=== PATIENT | female | born 1965 | race Caucasian/White ===

== ENCOUNTER 2025-05-21 07:48 | Outpatient (REF) | payer BC, SELFPAY ==
--- NOTE | ~2025-05-21 | MM_ITS ---
EXAMINATION: MM SCREENING DIGITAL BREAST TOMOSYNTHESIS, BILATERAL CLINICAL INFORMATION: Screening. Asymptomatic. COMPARISON: Mammography: Comparison is made with available priors TECHNIQUE: Digital breast mammography with tomosynthesis is performed in both the craniocaudal and mediolateral oblique views along with computer-aided detection (CAD). FINDINGS: The breasts are heterogeneously dense, which may obscure small masses. There are no significant masses, abnormal calcifications, or other abnormalities. MM/MM tomosynthesis screening BI IMPRESSION: No mammographic evidence of malignancy. ASSESSMENT: BI-RADS Category 1: Negative RECOMMENDATION: Routine annual mammography screening. Patient has a family history of breast cancer including sister diagnosed at 46. Breast MRI imaging for yearly screening surveillance could be considered for further evaluation. Breast mild need to be ordered by the patient's providing clinician. 1 year F/U This examination should not preclude the clinical evaluation of a suspicious palpable abnormality. This patient's information was entered into a reminder system with a target due date for their next mammogram. Electronically signed by: Anisa Freeman DO 05/24/2025 03:42 PM EDT
--- OUTSIDE RECORDS SUMMARY | 2025-05-21 07:50 | XMS_ITS | Encounter Summary ---
Author Organization [facility] Address [address] [place] [address] Phone Care Team Providers Care Compound Worker Name Role Phone Gary Camargo CNP Unavailable Gary Camargo CNP Primary Care Provider [phone] Guru Richardson MD Unavailable [phone] Perla Estrada OD Unavailable Guru Darden MD Unavailable Manav Mccray MD Unavailable [phone] Peyman Sandoval MD Unavailable [phone] Manav Mccray MD Unavailable [phone] Malik Alvarez MD Unavailable [phone] Encounter Details Date Type Department Care Team (Late st Contact Info) Description 03/22/2023 Procedure Pass [facility] - [address] [place] [address] Social History Tobacco Use Types Packs/Day Years Used Date Smoking Tobacco: Never Smokeless Tobacco: Never Alcohol Use Standard Drinks/Week Comments Yes 3 (1 standard drink = 0.6 oz pur e alcohol) (2022) Education Answer Date Recorded Are you interested in more education? Not on andrew e 12/20/2022 Are you concerned about learning? Not on file 12/20/2022 No 12/20/2022 No 12/20/2022 Digital Access Answer Date Recorded No 01/21/2023 No 01/21/2023 Reliable internet access at home? Not on file 01/21/2023 Device with a working camera? Not on file Comments No Sex and Gender Information Value Date Recorded Sex Assigned at Female 02/06/2018 1:55 PM EDT Legal Sex Female 7:06 PM EST Gender Identity Not on file Sexual Orientation Not on file documented as of this encounter Plan of Treatment Upcoming Encounters Date Type Department Care Team (Late st Contact Info) Description 04/23/2025 Procedure Pass [address] [place] [address] 07/08/2025 3:40 PM EST Office Visit [facility] [address] [place] [address] Justyn Biswas DO 22 [place] [address] 09/20/2025 4:00 PM EST Office Visit [facility] Medicine [address] [place] [address] [place] [address] Gary Camargo, ARABIC LINGUIST [address] [place] [address], [address] [place] [address] [email or web address] 09/22/2025 2:20 PM EST Office Visit [facility] [address] [place] [address] 3rd Floor, [address] [place] [address] Peyman Sandoval MD [address] [place] [address], [address] [place] [address] 12/14/2025 7:30 AM EDT Appointment [address] [place] [address] Gary Camargo, ARABIC LINGUIST [address] [place] [address], [address] [place] [address] [email or web address] documented as of this encounter Visit Diagnoses Not on filedocumented in this encounter Additional Health Concerns Infection Onset Date Last Indicated Resolved Time CoV-Risk 03/22/2023 03/22/2023 04/02/2023 1:21 AM EDT Assessment Noted Time PHQ-2 Depression Total Score: 0 11/28/19 5:03 PM EDT documented as of this encounter Care Teams Compound Worker Relationship Specialty Start Date End Date Gary Camargo CNP [address] [place] [address], [address] [address] PCP - General 07/25/17 Gary Camargo CNP [address] [place] [address] Historical LMR Provider 06/16/1709/17 Guru Richardson MD [address] [place] [address] Dermatology 04/29/19 Perla Estrada OD [address] [place] [address] Optometry 04/29/19 09/12/23 Guru Darden MD [address] [place] [address] Ophthalmology 11/28/22 Manav Mccray MD [address] [place] [address] Family Medicine 11/28/22 09/17/24 Peyman Sandoval MD [address] [place] [address] [email or web address] Cardiology 11/28/22 Manav Mccray MD [address] [place] [address], [address] [place] [address] Insurance Assigned Provider 11/30/23 03/06/25 Malik Alvarez MD [address] [place] [address], [address] [place] [address] [email or web address] Insurance Assigned Provider 03/06/25 [facility] 09/18/24 documented as of this encounter Additional Source Comments The information contained in this document represents components of the legal health record. It is not the complete legal health record.[facility]
--- OUTSIDE RECORDS SUMMARY | 2025-05-21 07:51 | XMS_ITS | Encounter Summary ---
Author Organization [facility] Address [address] [place] [address] Phone Care Team Providers Care Nut Sheller Name Role Phone Gary Camargo CNP Unavailable Gary Camargo CNP Primary Care Provider Guru Richardson MD Unavailable Guru Darden MD Unavailable Manav Mccray MD Unavailable [phone] Peyman Sandoval MD Unavailable Manav Mccray MD Unavailable [phone] Malik Alvarez MD Unavailable [phone] Encounter Details Date Type Department Care Team (Latest Contact Info) Description 03/17/2024 Transcribe Orders Virtual Department [address] [place], [place] [id number] Gary Camargo CNP 22 [facility], [address] [place] [address] [email or web address] Breast screening (Primary Dx) Social History Tobacco Use Types Packs/Day Years Used Date Smoking Tobacco: Never Smokeless Tobacco: Never Alcohol Use Standard Drinks/Week Comments Yes 3 (1 standard drink = 0.6 oz pur e alcohol) (2023) Child or Family Care Answer Date Record ed Do you have problems with on e of the following making it difficult for you to work, study, or receive health care? No 09/13/2023 Education Answer Date Recorded Are you interested in help w ith more adult education (for example, completing high school, GED, job training, learning the [place] language, technical skills, or developing parenting skills)? No 09/13/2023 Are you concerned about learning? Not on file 09/13/2023 No 09/13/2023 Yes 09/13/2023 Food Answer Date Recorded Within the past 6 months we worried whether our food would run out before we got money to buy more. Never True 09/13/2023 Within the past 6 months the food we bought just didn't last and we didn't have enough money to get more. Never True Residential Stability Answer Date Recor ded What is your housing situation today? I have cong sing 09/13/2023 How many times have you move d in the past 12 months? Zero (I did not move) 09/13/2023 Paying for Meds Answer Date Recorded Do you have trouble paying for medicines? No 09/13/2023 Paying Utility Bills Answer Date Record ed Do you have trouble paying your heating or elect ricity bill? No 09/13/2023 Transportation Answer Date Recorded Has the lack of transportati on kept you from medical appointments or from getting medications? No 09/13/2023 Digital Access Answer Date Recorded No 09/13/2023 Yes 09/13/2023 Do you have reliable internet access at home? Ye s 09/13/2023 Do you have a device (e.g., phone, tablet, computer) with a working camera? Yes 09/13/2023 Intimate Partner Violence Answer Date R ecorded Denied Basic Needs Not on file 09/13/2023 In the past 12 months have y ou been in a relationship with a person who hurts, threatens, or tries to control you? No 09/13/2023 Worried food would run out Not on file 09/13 In the past 12 months have y ou been in a relationship with a person who hurts, threatens, or tries to control you? No 09/13/2023 Comments No Sex and Gender Information Value Date Recorded Sex Assigned at Female 02/06/2018 1:55 PM EDT Legal Sex Female 7:06 PM EST Gender Identity Not on file Sexual Orientation Not on file documented as of this encounter Plan of Treatment Upcoming Encounters Date Type Department Care Team (Late st Contact Info) Description 04/23/2025 Procedure Pass [address] [place] [address] 07/08/2025 3:40 PM EST Office Visit [facility] [address] [place] [address] Justyn Biswas DO [address] [place] [address] 09/20/2025 4:00 PM EST Office Visit [facility] Medicine [address] [place] [address] [place] [address] Gary Camargo, RETAIL ACCOUNT EXECUTIVE [address] [place] [address], [address] [place] [address] [email or web address] 09/22/2025 2:20 PM EST Office Visit [facility] [address], [address] [place] [address] Peyman Sandoval MD [address] [place] [address], [address] [place] [address] 12/14/2025 7:30 AM EDT Appointment [address] [place] [address] Gary Camargo, RETAIL ACCOUNT EXECUTIVE [address] [place] [address], [address] [place] [address] [email or web address] documented as of this encounter Results * BI MAMMOGRAM SCREENING WITH TOMOSYNTHESIS WITH CAD (BILATERAL) (07/06/2024 3:13 PM EST) Anatomical Region Laterality Modality Breast Left, Breast Right, Breast Bilateral Bila teral Mammography 07/07/2024 11:0 3 AM EST Impressions 07/07/2024 11:03 AM EST No mammographic evidence of malignancy in either breast. Annual screening mammography is recommended. BI-RADS 1 NEGATIVE The patient will be notified of the results and recommendations. Narrative 07/07/2024 11:03 AM EST BI MAMMOGRAM SCREENING WITH TOMOSYNTHESIS WITH CAD (BILATERAL) Additional patient information: Screening. COMPARISON: Comparison is made with relevant prior imaging. Breast composition: The breast tissue is heterogeneously dense which may obscure small masses. FINDINGS: No abnormal masses, suspicious calcifications, or other significant findings are identified mammographically in either breast. Procedure Note Janneth Carbajal MD - 07/07/2024 BI MAMMOGRAM SCREENING WITH TOMOSYNTHESIS WITH CAD (BILATERAL) Additional patient information: Screening. COMPARISON: Comparison is made with relevant prior imaging. Breast composition: The breast tissue is heterogeneously dense which mayobscure small masses. FINDINGS: No abnormal masses, suspicious calcifications, or other significantfindings are identified mammographically in either breast. IMPRESSION: No mammographic evidence of malignancy in either breast. Annual screening mammography is recommended. BI-RADS 1 NEGATIVE The patient will be notified of the results and recommendations. Gary Camargo CNP IMG MG EXAMS Final Res ult documented in this encounter Visit Diagnoses Diagnosis Breast screening- Primary Breast screening, unspecified Breast screening Breast screening, unspecified documented in this encounter Additional Health Concerns Assessment Noted Time PHQ-2 Depression Total Score: 0 09/13/19 24 2:21 PM EST documented as of this encounter Care Teams Nut Sheller Relationship Specialty Start Date End Date Gary Camargo CNP 22 [facility], [address] [place] [address] PCP - General 07/25/17 Gary Camargo CNP 22 [facility], [address] [place] [address] Historical LMR Provider 06/16/1709/17 Guru Richardson MD [address] [place] [address], [address] [place] [address] Dermatology 04/29/19 Guru Darden MD [address] [place] [address] [place] [address] Ophthalmology 11/28/22 Manav Mccray MD [address] [place] [address], [address] [place] [address] Family Medicine 11/28/22 09/17/24 Peyman Sandoval MD [address] [place] [address], [address] [place] [address] Cardiology 11/28/22 Manav Mccray MD [address] [place] [address], [address] [place] [address] Insurance Assigned Provider 11/30/2308/19 Malik Alvarez MD [address] [place] [address], [address] [place] [address] Insurance Assigned Provider 03/06/25 Pedro Luis 09/18/24 documented as of this encounter Additional Source Comments The information contained in this document represents components of the legal health record. It is not the complete legal health record.[facility]
--- OUTSIDE RECORDS SUMMARY | 2025-05-21 07:51 | XMS_ITS | Encounter Summary ---
Author Organization [facility] Address [address] [place] [address] [place] [address] Phone Care Team Providers Care Rn Community Name Role Phone Gary Camargo CNP Primary Care Provider [phone] Guru Richardson MD Unavailable [phone] Guru Darden MD Unavailable [phone] Peyman Sandoval MD Unavailable Malik Alvarez MD Unavailable [phone] Reason for Visit * Reason Comments Medication Refill Encounter Details Date Type Department Care Team (Late st Contact Info) Description 03/17/2025 Refill [facility] [place] [facility] [address] [place] [address] Malik Alvarez MD 22 [facility], [address] [place] [address] [email or web address] Medication Refill Social History Tobacco Use Types Packs/Day Years Used Date Smoking Tobacco: Never Smokeless Tobacco: Never Alcohol Use Standard Drinks/Week Comments Yes 3 (1 standard drink = 0.6 oz pur e alcohol) (2024) Child or Family Care Answer Date Record ed Do you have problems with on e of the following making it difficult for you to work, study, or receive health care? No 09/11/2024 Education Answer Date Recorded Are you interested in help w ith more adult education (for example, completing high school, GED, job training, learning the [place] language, technical skills, or developing parenting skills)? No 09/11/2024 Are you concerned about learning? Not on file 09/11/2024 No 09/11/2024 Yes 09/11/2024 Food Answer Date Recorded Within the past 6 months we worried whether our food would run out before we got money to buy more. Never True 09/11/2024 Within the past 6 months the food we bought just didn't last and we didn't have enough money to get more. Never True Residential Stability Answer Date Recor ded What is your housing situation today? I have cong sing 09/11/2024 How many times have you move d in the past 12 months? Zero (I did not move) 09/11/2024 Paying for Meds Answer Date Recorded Do you have trouble paying for medicines? I aida se not to answer 09/11/2024 Paying Utility Bills Answer Date Record ed Do you have trouble paying y our heating or electricity bill? I choose not to answer 09/11/2024 Transportation Answer Date Recorded Has the lack of transportati on kept you from medical appointments or from getting medications? No 09/11/2024 Digital Access Answer Date Recorded No 09/11/2024 Yes 09/11/2024 Do you have reliable internet access at home? Ye s 09/11/2024 Do you have a device (e.g., phone, tablet, computer) with a working camera? Yes 09/11/2024 Intimate Partner Violence Answer Date R ecorded Denied Basic Needs Not on file 09/11/2024 In the past 12 months have y ou been in a relationship with a person who hurts, threatens, or tries to control you? No 09/11/2024 Worried food would run out Not on file 09/11 In the past 12 months have y ou been in a relationship with a person who hurts, threatens, or tries to control you? No 09/11/2024 Comments No Sex and Gender Information Value Date Recorded Sex Assigned at Female 02/06/2018 1:55 PM EDT Legal Sex Female 7:06 PM EST Gender Identity Not on file Sexual Orientation Not on file documented as of this encounter Progress Notes * Marcela Olivares MA - 03/17/2025 10:05 AM EDT Rx Care Gap Status - Instructions for Clinical Staff (prescriber discretion applies): > Mismatch review guide > N/a - No action needed Visit Info Last visit: 12/04/2024 Malik Alvarez MD - Family Medicine [facility] > Requested f/u: Not specified Upcoming visit: 09/20/2025 Gary Camargo CNP - Family Medicine [facility] ACTIONS TAKEN BY Marcela Olivares MA - Criteria met. Allergy / Rhinitis / Urticaria Rx Protocol - cetirizine HCl Criteria met; renew for up to 12 months. Visit in the past 24 months: Yes documented in this encounter Plan of Treatment Upcoming Encounters Date Type Department Care Team (Late st Contact Info) Description 04/23/2025 Procedure Pass [facility] - [address] [place] [address] 07/08/2025 3:40 PM EST Office Visit [facility] [address] [place] [address] [place] [address] Justyn Biswas DO [address] [place] [address] 09/20/2025 4:00 PM EST Office Visit [address] [place] [address] Gary Camargo CNP [address] [place] [address], [address] [place] [address] [email or web address] 09/22/2025 2:20 PM EST Office Visit [facility] [address] [place] [address] 3rd Floor, [address] [place] [address] Peyman Sandoval MD [address] [place] [address], [address] [place] [address] 12/14/2025 7:30 AM EDT Appointment [address] [place] [address] Gary Camargo CNP [address] [place] [address], [address] [place] [address] [email or web address] documented as of this encounter Visit Diagnoses Diagnosis Seasonal allergies Allergic rhinitis, cause unspecified documented in this encounter Additional Health Concerns Assessment Noted Time PHQ-2 Depression Total Score: 0 09/11/19 25 7:49 PM EST documented as of this encounter Care Teams Rn Community Relationship Specialty Start Date End Date Gary Camargo CNP [address] [place] [address], [address] [address] PCP - General 07/25/17 Guur Richardson MD [address] [place] [address], [address] [place] [address] Dermatology 04/29/19 Guru Darden MD [address] [place] [address] Ophthalmology 11/28/22 Peyman Sandoval MD [address] [place] [address], [address] [address] Cardiology 11/28/22 Malik Alvarez MD [address] [place] [address], [address] [address] Insurance Assigned Provider 03/06/25 [facility] 09/18/24 documented as of this encounter Additional Source Comments The information contained in this document represents components of the legal health record. It is not the complete legal health record.[facility]
--- OUTSIDE RECORDS SUMMARY | 2025-05-21 07:51 | XMS_ITS | Encounter Summary ---
Author Organization [facility] Address [address] [place] [address] Phone Care Team Providers Care Gold Marker Name Role Phone Manav Mccray MD Unavailable [phone] Diana Rasmussen MD Unavailable [phone] Luz Marina Martinez WATERWORKS PUMP STATION OPERATOR Unavailable Sadia Santiago MD Unavailable [phone] Ashlee Galvez WATERWORKS PUMP STATION OPERATOR Unavailable Brina Bajwa WATERWORKS PUMP STATION OPERATOR Unavailable Mango Renteria MD Unavailable [phone] Greyson Neumann MD Unavailable Denisse Ramires WATERWORKS PUMP STATION OPERATOR Unavailable [phone] Clay Golden MOBILE ENGINEER Unavailable [phone] Malik Castaneda MD Unavailable SantGary mitchell MOBILE ENGINEER Unavailable Emilio Camargoice MOBILE ENGINEER Primary Care Provider [phone] Manav Mccray MD Unavailable [phone] Guru Richardson MD Unavailable [phone] Perla Estrada OD Unavailable [phone] Guru Darden MD Unavailable Manav Mccray MD Unavailable [phone] Peyman Sandoval MD Unavailable Manav Mccray MD Unavailable [phone] Malik Alvarez MD Unavailable [phone] Encounter Details Date Type Department Care Team (Late st Contact Info) Description 12/16/2018 Ancillary Orders [address] [place] [address] Gary Camargo CNP [address] [place] [address], [address] [place] [address] Social History Tobacco Use Types Packs/Day Years Used Date Smoking Tobacco: Never Smokeless Tobacco: Never Alcohol Use Standard Drinks/Week Comments Yes 5 (1 standard drink = 0.6 oz pur e alcohol) Comments No Sex and Gender Information Value Date Recorded Sex Assigned at Female 02/06/2018 1:55 PM EDT Legal Sex Female 7:06 PM EST Gender Identity Not on file Sexual Orientation Not on file documented as of this encounter Plan of Treatment Upcoming Encounters Date Type Department Care Team (Late st Contact Info) Description 04/23/2025 Procedure Pass [facility] - [address] [place] [address] 07/08/2025 3:40 PM EST Office Visit [facility] [address] [place] [address] [place] [address] Justyn Biswas DO [address] [place] [address] 09/20/2025 4:00 PM EST Office Visit [address] [place] [address] Gary Camargo, SOL [address] [place] [address], [address] [place] [address] [email or web address] 09/22/2025 2:20 PM EST Office Visit [facility] [address] [place] [address] Dr 3rd Floor, [address] [place] [address] Peyman Sandoval MD 22 [facility], [address] [place] [address] 12/14/2025 7:30 AM EDT Appointment [address] [place] [address] Gary Camargo CNP 22 [facility], [address] [place] [address] [email or web address] documented as of this encounter Visit Diagnoses Not on filedocumented in this encounter Additional Health Concerns Infection Onset Date Last Indicated Resolved Time CoV-Risk 03/22/2023 03/22/2023 04/02/2023 1:21 AM EDT Assessment Noted Time PHQ-2 Depression Total Score: 0 04/14/20 2:04 PM EDT documented as of this encounter Care Teams Gold Marker Relationship Specialty Start Date End Date Gary Camargo CNP 22 [facility], [address] [place] [address] PCP - General 07/25/17 Manav Mccray MD [address] [place] [address], [address] [place] [address] Historical LMR Provider 06/16/17 9 Diana Rasmussen MD 15 [facility], 2nd [place] [address] Historical LMR Provider 06/16/17 Luz Marina Martinez NP [address] [place] [address] Historical LMR Provider 06/16/17 9 Sadia Santiago MD [address] [address] Historical LMR Provider 06/16/17 12/30/18 Ashlee Galvez, KIRILL [address] [place] [address] [place] [address] Historical LMR Provider 06/16/17 9 Brina Bajwa, KIRILL [address] [place] [address] Historical LMR Provider 06/16/17 9 Mango Renteria MD [address] [address] Historical LMR Provider 06/16/17 12/30/18 Greyson Neumann MD [address] [place] [address] 7 [place] [phone] Historical LMR Provider 06/16/17 9 Denisse Ramires, WATERWORKS PUMP STATION OPERATOR [address] [place] [address] 6 [place] [address] Historical LMR Provider 06/16/17 12/30/18 Clay Golden, MOBILE ENGINEER [address] [address] Historical LMR Provider 06/16/17 12/30/18 Malik Castaneda MD [address] [place] [address] [address] [place] [phone] [email or web address] Historical LMR Provider 06/16/17 04/28/19 Gary Camargo CNP [address] [place] [address], [address] [place] [address] [email or web address] Historical LMR Provider 06/16/1709/17 Manav Mccray MD [address] [place] [address], [address] [place] [address] Insurance Assigned Provider 01/25/19 10/29/21 Guru Richardson MD [address] [place] [address], [address] [place] [address] Dermatology 04/29/19 Perla Estrada OD [address] [place] [address] Optometry 04/29/19 09/12/23 Guru Darden MD [address] [place] [address] Ophthalmology 11/28/22 Manav Mccray MD [address] [place] [address], [address] [place] [address] [email or web address] Family Medicine 11/28/22 09/17/24 Peyman Sandoval MD [address] [place] [address], [address] [place] [address] [email or web address] Cardiology 11/28/22 Manav Mccray MD [address] [place] [address], [address] [place] [address] Insurance Assigned Provider 11/30/23 03/06/25 Malik Alvarez MD [address] [place] [address], [address] [place] [address] [email or web address] Insurance Assigned Provider 03/06/[address] [facility] 09/18/24 documented as of this encounter Additional Source Comments The information contained in this document represents components of the legal health record. It is not the complete legal health record.[facility]
--- OUTSIDE RECORDS SUMMARY | 2025-05-21 07:51 | XMS_ITS | Encounter Summary ---
Author Organization [facility] Address [address] [place] [address] Phone Care Team Providers Care Pastoral Ministries Professor Name Role Phone Gary Camargo CNP Unavailable Gary Camargo CNP Primary Care Provider Guru Richardson MD Unavailable Perla Estrada OD Unavailable [phone] Guru Darden MD Unavailable Manav Mccray MD Unavailable [phone] Peyman Sandoval MD Unavailable Manav Mccray MD Unavailable [phone] Malik Alvarez MD Unavailable [phone] Encounter Details Date Type Department Care Team (Latest Contact Info) Description 02/06/2022 Transcribe Orders Virtual Department [address] [place], [place] [id number] Gary Camargo CNP 22 [facility], [address] [place] [address] [email or web address] Breast screening (Primary Dx) Social History [...] st Contact Info) Description 04/23/2025 Procedure Pass [address] [place] [address] 07/08/2025 3:40 PM EST Office Visit [facility] [address] [place] [address] Justyn Biswas DO 22 [place] [address] 09/20/2025 4:00 PM EST Office Visit [facility] Medicine [address] [place] [address] Gary Camargo, TOURIST CAMP ATTENDANT [address] [place] [address], [address] [place] [address] [email or web address] 09/22/2025 2:20 PM EST Office Visit [facility] [address], [address] [place] [address] Peyman Sandoval MD [address] [place] [address], [address] [place] [address] 12/14/2025 7:30 AM EDT Appointment [address] [place] [address] Gary Camargo, TOURIST CAMP ATTENDANT [address] [place] [address], [address] [place] [address] [email or web address] documented as of this encounter Results * BI MAMMOGRAM SCREENING WITH TOMOSYNTHESIS WITH CAD (BILATERAL) (03/07/2022 3:50 PM EDT) Anatomical Region Laterality Modality Breast Left, Breast Right, Breast Bilateral Bila teral Mammography 03/07/2022 4:09 PM EDT Impressions 03/07/2022 4:59 PM EDT No mammographic evidence of malignancy. Recommend routine annual surveillance. BI-RADS CATEGORY: 2 - Benign finding. DENSITY: The breast tissue is heterogeneously dense, which could obscure a lesion on mammography. Narrative 03/07/2022 4:59 PM EDT 56-year-old female. Comparison made to previous on 03/02/2021 and as far back as 10/12/2008. Interpretation made in conjunction with computer-aided detection and tomosynthesis. The breasts are heterogeneously dense, which may obscure small masses. Stable outer right breast nodularity and bilateral microcalcifications. There are no suspicious masses, areas of architectural distortion, or suspicious clusters of microcalcifications. Procedure Note Paul Heath MD - 03/07/2022 56-year-old female. Comparison made to previous on 03/02/2021 and as farback as 10/12/2008. Interpretation made in conjunction with computer-aideddetection and tomosynthesis. The breasts are heterogeneously dense, which may obscure small masses.Stable outer right breast nodularity and bilateral microcalcifications. There are no suspicious masses, areas of architectural distortion, orsuspicious clusters of microcalcifications. IMPRESSION: No mammographic evidence of malignancy. Recommend routine annualsurveillance. BI-RADS CATEGORY: 2 - Benign finding. DENSITY: The breast tissue is heterogeneously dense, which could obscurea lesion on mammography. Gary Camargo TOURIST CAMP ATTENDANT IMG MG EXAMS Final Res ult documented in this encounter Visit Diagnoses Diagnosis Breast screening- Primary Breast screening, unspecified Breast screening Breast screening, unspecified documented in this encounter Additional Health Concerns Infection Onset Date Last Indicated Resolved Time CoV-Risk 03/22/2023 03/22/2023 04/02/2023 1:21 AM EDT Assessment Noted Time PHQ-2 Depression Total Score: 0 04/14/20 18 2:04 PM EDT documented as of this encounter Care Teams Pastoral Ministries Professor Relationship Specialty Start Date End Date Gary Camargo CNP [address] [place] [address], [address] [place] [address] PCP - General 07/25/17 Gary Camargo CNP [address] [place] [address], [address] [address] Historical LMR Provider 06/16/1709/17 Guru Richardson MD [address] [place] [address], [address] [address] Dermatology 04/29/19 Perla Estrada OD [address] [place] [address] Optometry 04/29/19 09/12/23 Guru Darden MD [address] [place] [address] Ophthalmology 11/28/22 Manav Mccray MD [address] [place] [address], [address] [address] Family Medicine 11/28/22 09/17/24 Peyman Sandoval MD [address] [place] [address] Cardiology 11/28/22 Manav Mccray MD [address] [place] [address], [address] [address] Insurance Assigned Provider 11/30/23 03/06/25 Malik Alvarez MD [address] [place] [address], [address] [place] [address] Insurance Assigned Provider 03/06/25 [facility] 09/18[facility]24 documented as of this encounter Additional Source Comments The information contained in this document represents components of the legal health record. It is not the complete legal health record.[facility]
--- OUTSIDE RECORDS SUMMARY | 2025-05-21 07:51 | XMS_ITS | Encounter Summary ---
Author Organization [facility] Address [address] [place] [address] Phone Care Team Providers Care Qa Intern Name Role Phone Gary Camargo CNP Unavailable [phone] Gary Camargo CNP Primary Care Provider [phone] Guru Richardson MD Unavailable Perla Estrada OD Unavailable [phone] Guru Darden MD Unavailable Manav Mccray MD Unavailable [phone] Peyman Sandoval MD Unavailable Manav Mccray MD Unavailable [phone] Malik Alvarez MD Unavailable [phone] Encounter Details Date Type Department Care Team (Late st Contact Info) Description 02/06/2022 Procedure Pass [address] [place] [address] Social History Tobacco Use Types Packs/Day Years [...] st Contact Info) Description 04/23/2025 Procedure Pass [address] [place] [address] 07/08/2025 3:40 PM EST Office Visit [facility] [address] [place] [address] Justyn Biswas DO 22 [place] [address] 09/20/2025 4:00 PM EST Office Visit [facility] Medical [facility] Family Medicine [address] [place] [address] Gary Camargo CNP [address] [place] [address], [address] [place] [address] [email or web address] 09/22/2025 2:20 PM EST Office Visit [facility] [address], [address] [place] [address] Peyman Sandoval MD [address] [place] [address], [address] [place] [address] 12/14/2025 7:30 AM EDT Appointment [address] [place] [address] Gary Camargo CNP [address] [place] [address], [address] [place] [address] [email or web address] documented as of this encounter Visit Diagnoses Not on filedocumented in this encounter Additional Health Concerns Infection Onset Date Last Indicated Resolved Time CoV-Risk 03/22/2023 03/22/2023 04/02/2023 1:21 AM EDT Assessment Noted Time PHQ-2 Depression Total Score: 0 04/14/20 2:04 PM EDT documented as of this encounter Care Teams Qa Intern Relationship Specialty Start Date End Date Gary Camargo CNP [address] [place] [address] [address] [place] [address] [email or web address] PCP - General 07/25/17 Gary Camargo CNP [address] [place] [address], [address] [place] [address] [email or web address] Historical LMR Provider 06/16/1709/17 Guru Richardson MD [address] [place] [address], [address] [place] [address] Dermatology 04/29/19 Perla Estrada OD [address] [place] [address] Optometry 04/29/19 09/12/23 Guru Darden MD [address] [place] [address] Ophthalmology 11/28/22 Manav Mccray MD [address] [place] [address], [address] [place] [address] Family Medicine 11/28/22 09/17/24 Peyman Sandoval MD [address] [place] [address], [address] [place] [address] [email or web address] Cardiology 11/28/22 Manav Mccray MD [address] [place] [address], [address] [place] [address] [email or web address] Insurance Assigned Provider 11/30/23 03/06/25 Malik Alvarez MD [address] [place] [address], [address] [place] [address] [email or web address] Insurance Assigned Provider 03/06/25 Pedro Luis 09/18/24 documented as of this encounter Additional Source Comments The information contained in this document represents components of the legal health record. It is not the complete legal health record.[facility]
--- OUTSIDE RECORDS SUMMARY | 2025-05-21 07:51 | XMS_ITS | Encounter Summary ---
Author Organization [facility] Address [address] [place] [address] Phone Care Team Providers Care Enterprise Systems Engineer Name Role Phone Gary Camargo CNP Unavailable [phone] Gary Camargo CNP Primary Care Provider [phone] Manav Mccray MD Unavailable [phone] Guru Richardson MD Unavailable [phone] Perla Estrada OD Unavailable [phone] Guru Darden MD Unavailable Manav Mccray MD Unavailable [phone] Peyman Sandoval MD Unavailable Manav Mccray MD Unavailable [phone] Malik Alvarez MD Unavailable [phone] Encounter Details Date Type Department Care Team (Late st Contact Info) Description 02/08/2021 Ancillary Orders [facility] Medicine [address] [place] [address] [place] [address] Gary Camargo CNP 22 [facility], [address] [place] [address] Social History Tobacco Use Types Packs/Day Years [...] st Contact Info) Description 04/23/2025 Procedure Pass [address] [place] [address] 07/08/2025 3:40 PM EST Office Visit [facility] [address] [place] [address] Justyn Biswas DO 22 [place] [address] 09/20/2025 4:00 PM EST Office Visit [address] [place] [address] Gary Camargo, CO FOUNDER AND CEO [address] [place] [address], [address] [place] [address] [email or web address] 09/22/2025 2:20 PM EST Office Visit [facility] [address] [place] [address] Dr 3rd Floor, [address] [place] [address] Peyman Sandoval MD [address] [place] [address], [address] [address] 12/14/2025 7:30 AM EDT Appointment [address] [place] [address] Gary Camargo CNP [address] [place] [address], [address] [place] [address] [email or web address] documented as of this encounter Visit Diagnoses Not on filedocumented in this encounter Additional Health Concerns Infection Onset Date Last Indicated Resolved Time CoV-Risk 03/22/2023 03/22/2023 04/02/2023 1:21 AM EDT Assessment Noted Time PHQ-2 Depression Total Score: 0 04/14/20 2:04 PM EDT documented as of this encounter Care Teams Enterprise Systems Engineer Relationship Specialty Start Date End Date LakhwinderGary foleySOL 22 [facility], [address] [place] [address] [email or web address] PCP - General 07/25/17 Gary Camargo CNP 22 [facility], [address] [place] [address] Historical LMR Provider 06/16/1709/17 Manav Mccray MD [address] [place] [address], [address] [address] Insurance Assigned Provider 01/25/19 10/29/21 Guru Richardson MD [address] [place] [address], [address] [address] Dermatology 04/29/19 Perla Estrada OD [address] [place] [address] Optometry 04/29/19 09/12/23 Guru Dardne MD [address] [place] [address] Ophthalmology 11/28/22 Manav Mccray MD [address] [place] [address], [address] [address] [email or web address] Family Medicine 11/28/22 09/17/24 Peyman Sandoval MD [address] [place] [address], [address] [place] [address] [email or web address] Cardiology 11/28/22 Manav Mccray MD [address] [place] [address], [address] [place] [address] [email or web address] Insurance Assigned Provider 11/30/23 03/06/25 Malik Alvarez MD [address] [place] [address], [address] [place] [address] [email or web address] Insurance Assigned Provider 03/06/25 [facility] 09/18/24 documented as of this encounter Additional Source Comments The information contained in this document represents components of the legal health record. It is not the complete legal health record.[facility]
--- OUTSIDE RECORDS SUMMARY | 2025-05-21 07:51 | XMS_ITS | Encounter Summary ---
Author Organization [facility] Address [address] [place] [address] Phone Care Team Providers Care Industrial Millwright Name Role Phone Gary Camargo CNP Unavailable [phone] Gary Camargo CNP Primary Care Provider [phone] Manav Mccray MD Unavailable [phone] Guru Richardson MD Unavailable Perla Estrada OD Unavailable [phone] Guru Darden MD Unavailable Manav Mccray MD Unavailable [phone] Peyman Sandoval MD Unavailable Manav Mccray MD Unavailable [phone] Malik Alvarez MD Unavailable [phone] Encounter Details Date Type Department Care Team (Late st Contact Info) Description 02/08/2021 Procedure Pass [address] [place] [address] Social History Tobacco Use Types Packs/Day Years [...] st Contact Info) Description 04/23/2025 Procedure Pass [address] [place] [address] 07/08/2025 3:40 PM EST Office Visit [facility] [address] [place] [address] [place] [address] Justyn Biswas DO [address] [place] [address] [email or web address] 09/20/2025 4:00 PM EST Office Visit [facility] Medical [facility] Family Medicine [address] [place] [address] [place] [address] Gary Camargo, SOL [address] [place] [address], [address] [place] [address] [email or web address] 09/22/2025 2:20 PM EST Office Visit [facility] [address] [place] [address] Dr 3rd Floor, [address] [place] [address] Peyman Sandoval MD [address] [place] [address], [address] [place] [address] [email or web address] 12/14/2025 7:30 AM EDT Appointment [address] [place] [address] Gary Camargo, WATER FILTERER HELPER [address] [place] [address], [address] [place] [address] [email or web address] documented as of this encounter Visit Diagnoses Not on filedocumented in this encounter Additional Health Concerns Infection Onset Date Last Indicated Resolved Time CoV-Risk 03/22/2023 03/22/2023 04/02/2023 1:21 AM EDT Assessment Noted Time PHQ-2 Depression Total Score: 0 04/14/20 2:04 PM EDT documented as of this encounter Care Teams Industrial Millwright Relationship Specialty Start Date End Date Gary CamargoSOL [address] [place] [address], [address] [place] [address] [email or web address] PCP - General 07/25/17 Gary Camargo WATER FILTERER HELPER [address] [place] [address], [address] [place] [address] [email or web address] Historical LMR Provider 06/16/1709/17 Manav Mccray MD [address] [place] [address], [address] [place] [address] [email or web address] Insurance Assigned Provider 01/25/19 10/29/21 Guru Richardson MD [address] [place] [address], [address] [place] [address] Dermatology 04/29/19 Perla Estrada OD [address] [place] [address] Optometry 04/29/19 09/12/23 Guru Darden MD [address] [place] [address] Ophthalmology 11/28/22 Manav Mccray MD [address] [place] [address], [address] [place] [address] [email or web address] Family Medicine 11/28/22 09/17/24 Peyman Sandoval MD [address] [place] [address], [address] [address] [email or web address] Cardiology 11/28/22 Manav Mccray MD [address] [place] [address], [address] [place] [address] [email or web address] Insurance Assigned Provider 11/30/23 03/06/25 Malik Alvarez MD [address] [place] [address], [address] [place] [address] [email or web address] Insurance Assigned Provider 03/06/25 [facility] 09/18/24 documented as of this encounter Additional Source Comments The information contained in this document represents components of the legal health record. It is not the complete legal health record.[facility]
--- OUTSIDE RECORDS SUMMARY | 2025-05-21 07:51 | XMS_ITS | Encounter Summary ---
Author Organization [facility] Address [address] [place] [phone] Phone Care Team Providers Care Public Relations Writer Name Role Phone Manav Mccray MD Unavailable +[phone] Diana Rasmussen MD Unavailable [phone] Luz Marina Martinez [employer] Unavailable Sadia Santiago MD Unavailable [phone] Ashlee Galvez [employer] Unavailable Brina Bajwa [employer] Unavailable Mango Renteria MD Unavailable [phone] Greyson Neumann MD Unavailable Denisse Ramires [employer] Unavailable [phone] Clay Golden LEARNING DEVELOPER Unavailable [phone] Malik Castaneda MD Unavailable SantGary mitchell LEARNING DEVELOPER Unavailable Emilio Camargoice LEARNING DEVELOPER Primary Care Provider [phone] Manav Mccray MD Unavailable +[phone] Guru Richardson MD Unavailable [phone] Perla Estrada OD Unavailable [phone] Guru Darden MD Unavailable Manav Mccray MD Unavailable [phone] Peyman Sandoval MD Unavailable Manav Mccray MD Unavailable [phone] Malik Alvarez MD Unavailable [phone] Encounter Details Date Type Department Care Team (Late st Contact Info) Description 01/28/2018 Ancillary Orders [address] [place] [address] Gary Camargo, LEARNING DEVELOPER [address] [facility], [address] [place] [address] [email or web address] Breast [email or web address] Social History Tobacco Use Types Packs/Day Years Used Date Smoking Tobacco: Never Smokeless Tobacco: Never Comments Unknown Sex and Gender Information Value Date Recorded Sex Assigned at Female 02/06/2018 1:55 PM EDT Legal Sex Female 7:06 PM EST Gender Identity Not on file Sexual Orientation Not on file documented as of this encounter Plan of Treatment Upcoming Encounters Date Type Department Care Team (Late st Contact Info) Description 04/23/2025 Procedure Pass [facility] - [address] [place] [address] 07/08/2025 3:40 PM EST Office Visit [facility] [address] [place] [address] [place] [address] Justyn Biswas DO [address] [place] [address] 09/20/2025 4:00 PM EST Office Visit [address] [place] [address] Gary Camargo, SOL [address] [place] [address], [address] [place] [address] [email or web address] 09/22/2025 2:20 PM EST Office Visit [facility] [address] [place] [address] [address] Floor, [address] [place] [address] Peyman Sandoval MD [address] [facility], [address] [place] [address] 12/14/2025 7:30 AM EDT Appointment [address] [place], [place] [address] Gary Camargo, SOL [address] [facility], [address] [place] [address] [email or web address] documented as of this encounter Results * BI MAMMOGRAM SCREENING WITH TOMOSYNTHESIS WITH CAD (BILATERAL) (02/06/2018 2:31 PM EDT) Anatomical Region Laterality Modality Breast Left, Breast Right, Breast Bilateral Bila teral Mammography 02/06/2018 3:12 PM EDT Impressions 02/06/2018 3:31 PM EDT No mammographic evidence of malignancy. Recommend routine annual surveillance. BI-RADS CATEGORY: 2 - Benign finding. DENSITY: The breast tissue is heterogeneously dense, an appearance which lowers the sensitivity of mammography. POS - CDHMAMA Narrative 02/06/2018 3:31 PM EDT 52-year-old female with no current breast symptoms. Comparison made to previous on 02/01/2017 and as far back as 12/31/2011. Interpretation made in conjunction with computer-aided detection and tomosynthesis. The breasts are heterogeneously dense, which may obscure small masses. Stable scattered bilateral microcalcifications and left upper outer quadrant lymph node. There are no suspicious masses, areas of architectural distortion, or suspicious clusters of microcalcifications. Procedure Note Osman Sebastian MD - 02/06/2018 52-year-old female with no current breast symptoms. Comparison made toprevious on 02/01/2017 and as far back as 12/31/2011. Interpretation madein conjunction with computer-aided detection and tomosynthesis. The breasts are heterogeneously dense, which may obscure small masses.Stable scattered bilateral microcalcifications and left upper outerquadrant lymph node. There are no suspicious masses, areas of architectural distortion, orsuspicious clusters of microcalcifications. IMPRESSION: No mammographic evidence of malignancy. Recommend routine annualsurveillance. BI-RADS CATEGORY: 2 - Benign finding. DENSITY: The breast tissue is heterogeneously dense, an appearance whichlowers the sensitivity of mammography. POS - CDHMAMA Gary Camargo LEARNING DEVELOPER IMG MG EXAMS Final Res ult documented in this encounter Visit Diagnoses Diagnosis Breast screening Breast screening, unspecified Breast screening Breast screening, unspecified documented in this encounter Additional Health Concerns Infection Onset Date Last Indicated Resolved Time CoV-Risk 03/22/2023 03/22/2023 04/02/2023 1:21 AM EDT documented as of this encounter Care Teams Public Relations Writer Relationship Specialty Start Date End Date Gary Camargo CNP [address] [place] [address], [address] [place] [address] PCP - General 07/25/17 Manav Mccray MD [address] [place], [place] [id number] [place] [address] Historical LMR Provider 06/16/17 9 Diana Rasmussen MD [address] [facility], [address]nd [place] [address] Historical LMR Provider 06/16/17 Luz Marina Martinez NP [address] [place] [address] Historical LMR Provider 06/16/17 9 Sadia Santiago MD [address] [facility], [address] [place] [address] Historical LMR Provider 06/16/17 12/30/18 Ashlee Galvez, KIRILL [address] [place] [address] [address] [place] [address] Historical LMR Provider 06/16/17 9 Brina Bajwa NP [address] [place] [address] Historical LMR Provider 06/16/17 9 Mango Renteria MD [address] [address] Historical LMR Provider 06/16/17 12/30/18 Greyson Neumann MD [address] [place] [phone] Historical LMR Provider 06/16/17 9 Denisse Ramires, [employer] [address] [place] [address] 6 [place] [address] Historical LMR Provider 06/16/17 12/30/18 Clay Golden, LEARNING DEVELOPER [address] [facility], [address] [place] [address] Historical LMR Provider 06/16/17 12/30/18 Malik Castaneda MD [address] [place] [address] [address] [place] [phone] [email or web address] Historical LMR Provider 06/16/17 04/28/19 Emilio CamargoebonySOL [address] [place] [address], [address] [place] [address] Historical LMR Provider 06/16/1709/17 Manav Mccray MD [address] [place] [address], [address] [place] [address] Insurance Assigned Provider 01/25/19 10/29/21 Guru Richardson MD [address] [place] [address], [address] [place] [address] Dermatology 04/29/19 Perla Estrada OD [address] [place] [address] Optometry 04/29/19 09/12/23 Guru Darden MD [address] [place] [address] Ophthalmology 11/28/22 Manav Mccray MD [address] [place] [address], [address] [address] Family Medicine 11/28/22 09/17/24 Peyman Sandoval MD [address] [place] [address], [address] [address] [email or web address] Cardiology 11/28/22 Manav Mccray MD [address] [place] [address], [address] [place] [address] Insurance Assigned Provider 11/30/23 03/06/25 Malik Alvarez MD [address] [place] [address], [address] [place] [address] [email or web address] Insurance Assigned Provider 03/06/25 [facility] documented as of this encounter Additional Source Comments The information contained in this document represents components of the legal health record. It is not the complete legal health record.[facility]
--- OUTSIDE RECORDS SUMMARY | 2025-05-21 07:51 | XMS_ITS | Clinical Summary ---
Author Organization [facility] Address [address] [place] [phone] Phone Care Team Providers Care Machine Operator Name Role Phone Gary Camargo CNP Primary Care Provider [phone] Guru Richardson MD Unavailable [phone] Guru Darden MD Unavailable [phone] Peyman Sandoval MD Unavailable [phone] Malik Alvarez MD Unavailable Allergies No known active allergies Medications cholecalciferol (VITAMIN D3) 2,000 unit capsule Take 1 tablet by mouth daily. Active levothyroxine (SYNTHROID, LEVOTHROID) 112 MCG tabletIndications: Acquired hypothyroidism Take 1 tablet (112 mcg total) by mouth every morning. Use 1 tablet Saturday through Saturdays and 1-1/2 tablets on Sundays. 90 tablet 3 4 Active liothyronine (CYTOMEL) 5 MCG tabletIndications: Acquired hypothyroidism Take 1 tablet (5 mcg total) by mouth daily. 90 tablet 3 4 Active hydroCHLOROthiazid e 12.5 MG tabletIndications: Benign essential hypertension TAKE 1 TABLET BY MOUTH EVERY DAY 90 tablet 3 5 Active aspirin 81 MG EC tablet Take 1 tablet (81 mg total) by mouth daily. 90 tablet 3 5 Active telmisartan (MICARDIS) 80 MG tabletIndications: Benign essential hypertension TAKE 1 TABLET BY MOUTH EVERY DAY 90 tablet 3 5 Active fluticasone propionate (FLONASE) 50 mcg/actuation nasal sprayIndications:S easonal allergies 1 spray by Nasal route daily. 16 g 3 5 Active rosuvastatin (CRESTOR) 5 MG tablet Take 1 tablet (5 mg total) by mouth daily. 90 tablet 3 5 Active Active Problems Problem Noted Date Diagnosed Date Ascending aorta dilatation 09/18/2024 Assessment & Plan (09/18/2024 4:38 PM EST): Borderline enlargement of the mid ascending aorta at 3.8 cm. Non-aneurysmal. She will discuss with Dr. Sandoval at her next visit. Hyperlipidemia 09/18/2024 Assessment & Plan (09/18/2024 4:38 PM EST): She picked up the atorvastatin but has not started it. She is interested in updating a lipid panel first and has an open order. We discussed that this does not change the recommendation for statin medication given the CAC score (even though it is low). We discussed potential statin s/e and the use of Co-Q10. She will consider. Ensure regular exercise. Chronic fatigue 07/09/2024 Assessment & Plan (07/09/2024 4:14 PM EST): I reviewed that the patient has normal hemoglobin hematocrit she had comprehensive levels with elevated bilirubin, elevated transaminase. Chloride level slightly below the reference range slightly elevated albumin. So I will repeat a comprehensive level. At this point I will do fatigue workup magnesium levels have already been done so when I requested. I will check ESR, IGF-I, vitamin D, thiamine, ESR and cortisol levels this has to be done fasting in the morning. I will be seeing her for thyroid disorder in 1 year but if we do find any abnormalities in any of the lab work that I ordered I asked her to return for follow-up sooner. She is going to review the patient portal and let me know. Encounter for general adult medical examination with abnormal findings 09/13/2023 Assessment & Plan (09/18/2024 4:38 PM EST): We discussed that she is eligible for Covid, PCV20, and Shingrix vaccines. She will consider. Warning signs of breast cancer and breast self-awareness reviewed. Continue annual mammography. Next screening pap smear 2027 per ASCCP guidelines. Colonoscopy 2026 per GI. Continue regular dental and eye care. Assessment & Plan (09/13/2023 3:28 PM EST): Flu shot today. Eligible for Shingrix and Covid vaccines at the pharmacy. Warning signs of breast cancer and breast self-awareness reviewed. Next screening pap smear 2027. Next screening colonoscopy 2027 per GI. Labs as below. Continue regular dental and eye care. Retinal freckle 11/28/2022 Assessment & Plan (09/18/2024 4:38 PM EST): She will follow up with her retinal specialist this summer. Assessment & Plan (09/13/2023 3:30 PM EST): She will schedule a follow up with the retinal group. Abnormal electrocardiogram 07/30/2019 Acquired hypothyroidism 08/16/2017 Assessment & Plan (07/09/2024 4:12 PM EST): She is chemically euthyroid but clinically continues to complain of fatigue. She is either taking too much medication or the fatigue is not thyroid related. I am decreasing the dose of levothyroxine by half a tablet per week so she will be taking 112 mcg daily. She will repeat thyroid function studies prior to follow-up visit in 1 year. Assessment & Plan (04/08/2024 4:09 PM EDT): Chemically euthyroid but clinically does not feel well. Feels that she is dragging herself. Does not feel energetic. I will increase the dose of levothyroxine by half a tablet but I did inform her that if her TSH is suppressed I cannot continue prescribing such a high dose because it is associated with arrhythmia and bone resorption. She will repeat thyroid function studies in 3 months. Assessment & Plan (02/18/2024 2:28 PM EDT): No clear cause for drop in TSH. She will have repeat labs in March. I recommended that she check with the pharmacy to see if she has been getting the same generic medication before her follow up visit with endocrinology. Assessment & Plan (01/07/2024 8:53 AM EDT): Chemically in a hyperthyroid state but clinically euthyroid. I informed her that suppressed TSH is associated with increased bone resorption therefore increasing osteopenia/osteoporosis and possibility of arrhythmia so we have to decrease the dose of levothyroxine from 125 to 112 mcg continue liothyronine 5 mcg. She should repeat thyroid function studies prior to the follow-up visit in 3 months. Assessment & Plan (10/09/2023 3:23 PM EST): The patient is in a subclinical hyperthyroid pattern. But clinically she is well. I will continue the current regimen for the next 3 months but I have to repeat thyroid function studies. It is difficult to get reference range thyroid function studies when patient is taking both T4 and T3 but we should be able to control the levels. So if the numbers are not better on the follow-up visit we may have to adjust her medications. Assessment & Plan (09/13/2023 3:30 PM EST): TSH dropped a bit on recent labs; defer to Dr. Biswas. Follow up in September as planned. Assessment & Plan (03/04/2023 4:03 PM EDT): Chemically and clinically euthyroid on levothyroxine 125 mcg and liothyronine 5 mcg repeat thyroid function studies in 3 months. Assessment & Plan (11/16/2021 4:49 PM EDT): Chemically and clinically euthyroid with the current dose of medications levothyroxine 137 mcg and liothyronine 5 mcg and not going to change the dose. She should repeat thyroid function studies prior to follow-up visit in 1 year. Assessment & Plan (05/18/2021 4:34 PM EDT): The patient is chemically and clinically euthyroid. We will continue current medications levothyroxine 137 mcg and Cytomel 5 mcg daily. She will repeat thyroid function studies in 6 months time. Assessment & Plan (02/16/2021 4:41 PM EDT): The patient is chemically euthyroid but clinically she does not feel well she still continues to complain of fatigue and cold intolerance. I suggested that I can prescribe Cytomel 5 mcg in addition to levothyroxine 137 mcg. The issue with Cytomel is that is not long-acting it only last for 4 hours and is 10 times more potent than thyroxine hormone. It may make her jittery, nervous anxious but again the effects are not long lasting. If she wanted to she could split the tablet in half to take half in the morning and half in the afternoon. But the problem with taking it in the afternoon is that is not as well absorbed because it should be taken fasting or at least before meal. However any food content in the stomach 4 hours prior usually decreases the absorption of the medication. So the patient states that she is willing to try it as long as it does not cause weight gain. This medication should not cause weight gain if anything should cause weight loss. I doubt that such a small dose is going to cause any change in weight but it definitely will not cause weight gain. The concern is that her thyroid functions may change specifically the free T4 may increase as there is usually equilibrium between free T4 and free T3. So at this point I will prescribe the medication and repeat thyroid function studies in 3 months. The patient states that if she does not feel good and she feels too jittery on the medication then she will stop it. I will see her in 3 months time. Assessment & Plan (11/07/2020 3:45 PM EDT): The patient is chemically euthyroid clinically she does complain of fatigue and always has cold intolerance. However presently her thyroid functions are in the reference range which is more than we could say from the previous times with the free T4 was consistently elevated. So I would not change the dose of the prescription should continue 137 mcg she will repeat thyroid function studies in 3 months. If the levels are fine then we can repeat again in 6 months. Assessment & Plan (08/15/2020 4:17 PM EST): The patient is in a subclinical hyperthyroid state she feels less edgy. The free T4 is elevated TSH is in the reference range but a little bit higher. The results are definitely odd because the TSH is not completely suppressed and the free T4 is elevated which implies that she is getting too much thyroid medications. I will decrease the dose from 150 mcg to 137 mcg and repeat thyroid function studies in 3 months. I have asked her to monitor how she feels with the change in dose. After 1 week the free T4 should change so she should be feeling the fact of the new dose but the TSH takes up to 3 months to change. 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 This point we are going to change the levothyroxine administration to morning. She should just take the 150 and forget about taking the additional 25 mcg weekly. She is going to drink a coffee the way she does every day will repeat thyroid function studies in 2 to 3 months time. Is better to wait to 3 months but if she feels more hypothyroid and does have symptoms of feeling cold which we are going to ignore because she is always cold but having constipation myalgias, hair loss, depression feeling very sleepy all the time and increased fatigue all symptoms of hypothyroidism and if in that can be the test earlier in 2 months time but for now unguinal scheduled for 3 months because it is best to just make sure that we have an accurate TSH and the longer we wait the more accurate it is. Is reminded not to take any multivitamins, calcium within 4 hours of levothyroxine administration. She has to wait 45 minutes before eating. And also on the day that she draws the blood test it should be at least 2 hours after she takes her thyroid medication that does not mean that she has to go 2 hours after she took the medication but she cannot take her thyroid medications and then go draw the blood test she must have these weight 2 hours ago before I was 5 hours but 2 hours is the minimum. Chronic bilateral low back pain with left-sided sciatica 08/16/2017 Assessment & Plan (02/18/2024 2:27 PM EDT): Reviewed physiatry notes. I asked her to have a copy of the MRI sent to me and she will do so. She did have transient benefit with epidural injection. F/up with Dr. Villasenor as planned. She notes that topical diclofenac was helpful in the past and I refilled this. Try lowest possible dose. She can get OTC if insurance does not cover this and could also use topical lidocaine patches OTC prn. Assessment & Plan (09/13/2023 3:29 PM EST): She did have improvement in symptoms with injections through [facility] and is amenable to returning. MRI 2020 reviewed. She has cramping to the L calf which is likely related to radiculopathy but will check magnesium and B12 levels today. Constipation 08/16/2017 Assessment & Plan (09/13/2023 3:29 PM EST): Continue regular physical activity, adequate water intake. Ensure adequate dietary fiber intake and consider gradual addition of fiber supplement. Call with red flags such as pain, bleeding, not present today. Dense breast tissue on mammogram 08/16/2017 Assessment & Plan (09/13/2023 3:28 PM EST): Reviewed breast density. Her sister had breast cancer about 10 years ago and had negative genetic testing. Family history of breast cancer 08/16/2017 Overview (04/29/2019): Sister with negative genetic testing Family history of prostate cancer 08/16/2017 History of basal cell cancer 08/16/2017 Assessment & Plan (09/13/2023 3:30 PM EST): Followed yearly by Dr. Richardson. Next visit is scheduled in the spring. Benign essential hypertension 08/16/2017 Assessment & Plan (09/18/2024 4:38 PM EST): Adequately controlled on current regimen. Continue HCTZ and telmisartan. Schedule visit with Dr. Sandoval this summer. Assessment & Plan (02/18/2024 2:27 PM EDT): At goal on current medications. Continue the same. F/up 08/2024 as planned. Assessment & Plan (09/13/2023 3:29 PM EST): Well controlled. Continue current medication regimen. Lipid profile was good last year and stable. Resolved Problems Problem Noted Date Diagnosed Date Resolved Date Throat pain in adult 03/22/2023 024 Assessment & Plan (03/22/2023 9:28 AM EDT): Rapid strep is negative. Given persistent symptoms will send throat culture and PCR but suspect viral process. Push fluids, rest. Try warm salt water gargles. OK to continue Tylenol. Call with worsening or failure to improve. She agrees. Mass of left breast 08/16/2017 04/29/20 19 Encounters Date Type Department Care Team Description 04/23/2025 Transcribe Orders [facility] Department [address] [place] [address] Gary Camargo CNP Breast screening (Primary Dx) 03/30/2025 9:14 AM EDT - 03/30/2025 11:59 PM EDT Hospital Encounter [facility], [facility] [address] [place] [address] Leigh Ann Hager NP Discharge Disposition: Home or Self Care 03/30/2025 Nurse Triage [facility] [address] [place] [address] Gary Camargo CNP Triage (Yellow-stung by hornet) 03/18/2025 2:00 PM EDT Office Visit [facility] [address], [address] [place] [address] Peyman Sandoval MD Hyperlipidemia, unspecified hyperlipidemia type (Primary Dx); Essential hypertension 03/17/2025 Refill [facility] [address] [place] [address] Malik Alvarez MD Medication Refill 03/09/2025 7:46 AM EDT - 03/09/2025 11:59 PM EDT Hospital Encounter [facility] [address] [place] [address] Peyman Sandoval MD Discharge Disposition: Home or Self Care from Last 3 Months Immunizations Immunization Administration Dates Next Due COVID-19 (Pre-06/17) Pfizer Vaccine, mRNA, PF 09/18/2020,08/28/2020 INFLUENZA, SPLIT VIRUS, TRIVALENT PF 06/24/2024 Influenza Quadrivalent Preservative Free IM 08/26,07/01/2018,06/26/2017 Td (adult),2 Lf Tetanus Toxo id, PF, Adsorbed 11/28/2022 Tdap 10/26/2009 Family History Medical History Relation Comments HIV Brother 1 AIDS Hypertension Brother 1 Pulmonary embolism Brother 1 Stroke Brother 1 Gout Brother 2 Hypertension Brother 2 Dementia Father Lung cancer Father Software Licensing Executive. Quit smoking age 40s. Not treated due to underlying medical complications when diagnosed. Prostate cancer Father Thrombocytopenia Father Breast cancer Maternal Aunt 1 Breast cancer Maternal Aunt 2 Stomach cancer Maternal Grandfather Smoker Macular degeneration Maternal Grandmother Heart attack Mother Late 50s Hypertension Mother Smoker Other Mother of ruptured aorta from rib fracturerelated to fall No Known Problems Paternal Grandfather abby g, possible pneumonia Dementia Paternal Grandmother Breast cancer Sister Negative genetic testing Hypothyroidism Sister Colon cancer Neg Hx Diabetes Neg Hx Glaucoma Neg Hx Hip fracture Neg Hx Relation Status Comments Brother 1 (Age 47) Brother 2 Alive Father (Age 70) Maternal Aunt 1 Maternal Aunt 2 Maternal Grandfather Maternal Grandmother Mother (Age 62) Paternal Grandfather Paternal Grandmother Sister Alive Social History Tobacco Use Types Packs/Day Years Used Date Smoking Tobacco: Never Smokeless Tobacco: Never Tobacco Cessation:Counseling Given: Not Answered Alcohol Use Standard Drinks/Week Comments Yes 3 [...] high school, GED, job training, learning the Latvian language, technical skills, or developing parenting skills)? [...] your housing situation today? I have cong escobar 09/11/2024 How many times have you move [...] on file Sexual Orientation Not on file Last Filed Vital Signs Vital Sign Reading Time Taken Comments Blood Pressure 118/86 03/18/2025 1:59 PM EDT Pulse 71 03/18/2025 1:59 PM EDT Temperature 36.9 C (98.5 F) 12/04/2024 4:09 PM EDT Respiratory Rate 20 09/13/2023 2:25 PM EST Oxygen Saturation 98% 03/18/2025 1:59 PM EDT Inhaled Oxygen Concentration - - Weight 68.5 kg (151 lb) 03/18/2025 1:59 PM EDT Height 165.1 cm (5' 5 ) 03/18/2025 1:59 PM EDT Body Mass Index 25.13 03/18/2025 1:59 PM EDT Plan of Treatment Upcoming Encounters Date Type Department Care Team (Late st Contact Info) Description 04/23/2025 Procedure Pass [address] [place] [address] 07/08/2025 3:40 PM EST Office Visit [facility] [address] [place] [address] [place] [address] Justyn Biswas DO [address] [place] [address] 09/20/2025 4:00 PM EST Office Visit [address] [place] [address] Gary Camargo, APPRENTICESHIP CONSULTANT [address] [place] [address], [address] [place] [address] [email or web address] 09/22/2025 2:20 PM EST Office Visit [facility] [address] [place] [address] Dr [address] Floor, [address] [place] [address] Peyman Sandoval MD [address] [place] [address], [address] [place] [id number] 12/14/2025 7:30 AM EDT Appointment [address] [place] [address] Gary Camargo, APPRENTICESHIP CONSULTANT [address] [place] [address], [address] [place] [address] [email or web address] Health Maintenance Due Date Last Done Comments PNEUMOCOCCAL VACCINES (50+ years) (1 of 2 - PCV) 1985 COLOGUARD 2011 FIT TEST 2011 FOBT 2011 SIGMOIDOSCOPY 2011 VIRTUAL COLONOSCOPY 2011 ZOSTER VACCINES (1 of 2) 2016 INFLUENZA VACCINE (#1) 2025 , 09/13/2023, 07/01/2018, Additional history exists COVID-19 VACCINE (4 - 2024- season) 2025 10/13/2021, 09/18/2020, 08/28/2020 TSH LEVEL 06/30/2025 06/30/2024, 081 , 01/03/2024, Additional history exists DEPRESSION SCREENING 09/11/2025 09/11/2024 BLOOD PRESSURE 09/18/2025 03/18/2025 CREATININE LEVEL 12/17/2025 12/17/2024, 01/2024, 09/13/2023, Additional history exists POTASSIUM LEVEL 12/17/2025 12/17/2024, 12/0 01/2024, 09/13/2023, Additional history exists MAMMOGRAM 07/06/2026 07/06/2024, 08/0 02/2023, 03/07/2022, Additional history exists COLONOSCOPY 06/07/2027 06/07/2017 COLORECTAL CANCER SCREENING 06/07/2027 PAP SMEAR 11/29/2027 11/28/2022, 01/02/2017 SCREENING FOR DIABETES 12/18/2027 12/17/2024, 2022 LIPID PANEL 03/09/2030 03/09/2025, 11/25, 12/19/2022, Additional history exists Adult Td,Tdap Booster 11/28/2032 11/28/2022, 010 HIV ONE-TIME SCREENING (18-65 YEARS) Completed 04/24/2018 HEPATITIS C SCREENING Completed 12/19/2022, 023 SMOKING STATUS SCREENING (Once After 26 Yrs) Completed 03/18/2025 HEPATITIS A VACCINES Aged Out No long er eligible based on patient's age to complete this topic HIB VACCINES Aged Out No longer eligi ble based on patient's age to complete this topic MENINGOCOCCAL VACCINES (ACWY) Aged Out No longer eligible based on patient's age to complete this topic MENINGOCOCCAL VACCINES (B) Aged Out N o longer eligible based on patient's age to complete this topic Medical Devices Not on file Procedures Procedure Name Priority Date/Time Associated Diagnosis Comments US ABDOMEN LIMITED RIGHT UPPER QUADRANT Routine 03/30/2025 9:40 AM EDT Liver cyst Fatty liver LIPID PANEL Routine 03/09/2025 8:00 AM EDT Hyperlipidemia, unspecified hyperlipidemia type COMPREHENSIVE METABOLIC PANEL Routine 12/17/2024 4:03 PM EDT Gastrointestinal tract imaging abnormality Dysphagia, unspecified type BI MAMMOGRAM SCREENING WITH TOMOSYNTHESIS WITH CAD (BILATERAL) Routine 07/06/2024 3:13 PM EST Breast screening TSH Routine 06/30/2024 11:14 AM EST Acquired hypothyroidism HEPATITIS C ANTIBODY, QUALITATIVE Routine 12/19/2022 7:55 AM EDT Need for hepatitis C screening test PAP TEST Routine 11/28/2022 12:00 AM EDT HM COLONOSCOPY FOR RESULT ENTRY ONLY Routine 06/07/2017 from Last 3 Months or Most Recently Relevant to Health Maintenance Results * US ABDOMEN LIMITED RIGHT UPPER QUADRANT (03/30/2025 9:40 AM EDT) Anatomical Region Laterality Modality Abdomen Ultrasound 03/30/2025 11:1 3 AM EDT Impressions 03/30/2025 11:21 AM EDT 1. Redemonstration of mildly echogenic liver which is nonspecific but most commonly due to hepatic steatosis. 2. Redemonstration of unilocular right hepatic lobe cyst measuring 12 mm. 3. Scattered gallbladder polyps measuring up to 3 mm, no larger than prior ultrasound back to 09/30/2024. Narrative 03/30/2025 11:21 AM EDT US ABDOMEN LIMITED RIGHT UPPER QUADRANT Referring clinician's provided indication for this examination in [facility]: Outside Radiology Order; liver cyst TECHNIQUE: US Abdominal limited right upper quadrant. COMPARISON: US LIVER WITH ELASTOGRAPHY ; US ABDOMEN LIMITED RIGHT UPPER QUADRANT FINDINGS: Liver: Liver it remains mildly echogenic when compared to the adjacent right kidney. There is a unilocular anechoic right hepatic lobe cyst measuring 1.2 cm with through transmission, similar when compared to prior. Main Portal Vein: Patent with normal direction of flow. Gallbladder: There are scattered polypoid echogenic mural gallbladder lesions measuring up to 3 mm consistent with polyps, no larger than prior ultrasound. No shadowing stones nor significant distention. Robledo's Sign: Negative. Biliary: No intrahepatic or extrahepatic biliary ductal dilatation. The common bile duct measures 4 mm. Right Kidney: Measures 10.1 cm and is without shadowing stone or hydronephrosis. The visualized mid pancreas is unremarkable. The pancreatic head and tail are not seen due to overlying bowel gas. Procedure Note J Luis Hamilton MD - 03/30/2025 US ABDOMEN LIMITED RIGHT UPPER QUADRANT Referring clinician's provided indication for this examination in [facility]:Outside Radiology Order; liver cyst TECHNIQUE: US Abdominal limited right upper quadrant. COMPARISON: US LIVER WITH ELASTOGRAPHY ; US ABDOMEN LIMITEDRIGHT UPPER QUADRANT FINDINGS: Liver: Liver it remains mildly echogenic when compared to the adjacentright kidney. There is a unilocular anechoic right hepatic lobe cystmeasuring 1.2 cm with through transmission, similar when compared toprior. Main Portal Vein: Patent with normal direction of flow. Gallbladder: There are scattered polypoid echogenic mural gallbladderlesions measuring up to 3 mm consistent with polyps, no larger than priorultrasound. No shadowing stones nor significant distention. Robledo's Sign: Negative. Biliary: No intrahepatic or extrahepatic biliary ductal dilatation. The common bile duct measures 4 mm. Right Kidney: Measures 10.1 cm and is without shadowing stone orhydronephrosis. The visualized mid pancreas is unremarkable. The pancreatic head and tailare not seen due to overlying bowel gas. IMPRESSION: 1. Redemonstration of mildly echogenic liver which is nonspecific butmost commonly due to hepatic steatosis. 2. Redemonstration of unilocular right hepatic lobe cyst measuring 12mm. 3. Scattered gallbladder polyps measuring up to 3 mm, no larger thanprior ultrasound back to 09/30/2024. us Leigh Ann Hager NP IMG US ABDOMEN Final Result * Lipid panel (03/09/2025 8:00 AM EDT) HDL 45 mg/dL [facility] Comment: Interpretation <40 mg/dL: Low HDL cholesterol (major risk factor for CHD) Greater than or equal to 60 mg/dL: High HDL cholesterol ( negative risk factor for CHD) HDL - cholesterol is affected by a number of factors, e.g. smoking, excerise, hormones, sex and age. CHOLESTEROL 196 0 - 240 mg/dL [facility] [facility] TRIGLYCERIDES 123 30 - 160 mg/dL [facility] LDL 126 50 - 129 mg/dL [facility] Comment: LDL levels in terms of risk for coronary heart disease: <100 mg/dL: Optimal 100-129 mg/dL: Near or above optimal 130-159 mg/dL: Borderline high 160-189 mg/dL: High >190 mg/dL: Very High CARDIAC RISK RATIO 4.4 3.3 - 4.4 C [facility] Blood 03/09/2025 8:00 AM EDT 03/09/2025 8:05 AM EDT us Peyman Sandoval MD LAB BLOOD ORDERABLES Final Re sult [facility] [address] [place], [place] [id number] * Comprehensive metabolic panel (12/17/2024 4:03 PM EDT) SODIUM 139 133 - 146 mmol/L [facility] POTASSIUM 3.6 3.3 - 5.1 mmol/L [facility] CHLORIDE 102 96 - 108 mmol/L [facility] CO2 26 21 - 35 mmol/L [facility] BUN 10 6 - 19 mg/dL [facility] CREATININE 0.80 0.5 - 1.5 mg/dL [facility] GLUCOSE 88 70 - 99 mg/dL [facility] ALBUMIN 4.4 3.9 - 4.8 g/dL [facility] TOTAL PROTEIN 7.0 6.5 - 8.0 g/dL [facility] CALCIUM 9.5 8.4 - 10.3 mg/dL [facility] ALKALINE PHOSPHATASE 90 39 - 117 U/L [facility] TOTAL BILIRUBIN 0.9 0.0 - 1.2 mg/dL [facility] AST 28 0 - 37 U/L [facility] ALT 33 0 - 40 U/L [facility] GLOBULIN 2.6 1 - 4.8 g/dL [facility] EGFR 85 >59 mL/min/1.7 3m2 [facility] Comment:Estimated glomerular filtration rate calculated using the CKD-EPI refit equation. ANION GAP 15 10 - 20 mmol/L [facility] Blood 12/17/2024 4:03 PM EDT 12/17/2024 4:05 PM EDT us Cristine RITTER LAB BLOOD ORDERABLES Final Resu lt [address] [address] * BI MAMMOGRAM SCREENING WITH TOMOSYNTHESIS WITH [...] CNP IMG MG EXAMS Final Res ult * TSH (06/30/2024 11:14 AM EST) TSH 0.67 0.27 - 4.20 uIU/mL [facility] Blood 06/30/2024 11:1 4 AM EST 06/30/2024 11:19 AM EST Justyn Biswas DO LAB BLOOD ORDERABLES Final Resul t Performing Organization Address City/[facility]/ZIP Co de Phone Number [address] [address] * Hepatitis C antibody, qualitative (12/19/2022 7:55 AM EDT) HCV NON-REACTIV E NON-REACTI VE [facility] Blood 12/19/2022 7:55 AM EDT 12/19/2022 7:59 AM EDT Gary Camargo CNP LAB BLOOD ORDERABLES Yvette l Result Performing Organization Address City/[facility]/ZIP Co de Phone Number [address] [address] * Pap Test (11/28/2022 12:00 AM EDT) 11/28/2022 11/29/2022 9:4 8 AM EDT Narrative SEE NARRATIVE - 12/04/2022 12:41 PM EDT [address] [address] Commercial Insulator: Montserrat Farias MD ELECTRICIAN OFFICE Cytology Report FINAL DIAGNOSIS A. PAP SMEAR (SUREPATH) CE: SPECIMEN ADEQUACY: Satisfactory for evaluation; transformation zone present. INTERPRETATION: NEGATIVE FOR INTRAEPITHELIAL LESION OR MALIGNANCY. Electronically Signed Out By: BIANCA Strong(ASCP) The Pap test is a screening test primarily for squamous cancers and precursors and has associated false-negative and false-positive results. New technologies such as liquid-based preparations may decrease but will not eliminate all false-negative results. Regular sampling and follow-up of unexplained clinical signs and symptoms are recommended to minimize false negative results. PROCEDURES/ADDENDA HPV Testing (Requested) Ordered Date: 11/29/2022 A. PAP SMEAR (SUREPATH) CE: Human Papilloma Virus Test NEGATIVE for high-risk Human Papilloma Virus types 16, 18, 45 and the Other high risk probe set (Includes 31, 33, 35, 39, 51, 52, 56, 58, 59, 66, 68) Note: Testing performed by [facility] HR-HPV analysis. Clinical correlation is advised. This HPV test was performed at [facility], [address] [place] [address]. This test has been FDA approved for SurePath cervical cytology specimens. The accuracy and precision of this test for all other specimen sources has been verified in the Cytopathology Laboratory of the [facility] and has not been cleared or approved by the U.S. Food and Drug Administration. Clinical correlation is advised. CLINICAL HISTORY Date of Last Menstrual Period: 2018 Menstrual History: Post Menopausal Other Clinical Conditions: Screening Pap SPECIMEN SOURCE A: PAP SMEAR (SUREPATH) CE Patient Name: REGINO APODACA : 1965 (Age: 57) Sex: F Institution: [facility] Location: [facility] Date of Collection: 11/28/2022 Date of Reported: 12/04/2022 12:41 Results to: Gary Camargo MSN Gary Camargo APPRENTICESHIP CONSULTANT CYTOLOGY ORDERABLES Final Result SEE NARRATIVE * COLONOSCOPY FOR RESULT ENTRY ONLY (06/07/2017) HM Colonoscopy repeat 10 year Historical Provider HEALTH MAINTENANCE Final Result from Last 3 Months or Most Recently Relevant to Health Maintenance Insurance PPO PPO BLUE CROSS OUT OF STATE PPO OUT OF STATE PPO OUT OF [facility] PPO OUT OF STATE PPO OUT OF STATE PPO OUT OF [facility] PPO BLUE CROSS OUT OF STATE PPO BLUE CROSS OUT OF STATE PPO Care Teams Machine Operator Relationship Specialty Start Date End Date Gary Camargo CNP [address] [place] [address], [address] [place] [address] PCP - General 07/25/17 Guru Richardson MD [address] [place] [address], [address] [place] [address] Dermatology 04/29/19 Guru Darden MD [address] [place] [address] Ophthalmology 11/28/22 Peyman Sandoval MD [address] [place] [address], [address] [place] [address] [email or web address] Cardiology 11/28/22 Malik Alvarez MD [address] [place] [address], [address] [place] [address] [email or web address] Insurance Assigned Provider 03/06/25 [facility] 09/18/24 Additional Source Comments The information contained in this document represents components of the legal health record. It is not the complete legal health record.[facility]
--- OUTSIDE RECORDS SUMMARY | 2025-05-21 07:51 | XMS_ITS | Encounter Summary ---
Author Organization [facility] Address [address] [place] [address] Phone Care Team Providers Care Customer Service Dispatcher Name Role Phone Gary Camargo CNP Primary Care Provider [phone] Guru Richardson MD Unavailable Guru Darden MD Unavailable Peyman Sandoval MD Unavailable [phone] Manav Mccray MD Unavailable [phone] Malik Alvarez MD Unavailable [phone] Encounter Details Date Type Department Care Team (Latest Contact Info) Description 12/24/2024 Transcribe Orders Virtual Department [address] [place] [address] Leigh Ann Hager, KIRILL [address] [place], [place] [phone] Liver cyst (Primary Dx); Fatty liver Social History Tobacco Use Types Packs/Day Years [...] high school, GED, job training, learning the [place] language, technical skills, or developing parenting skills)? [...] st Contact Info) Description 04/23/2025 Procedure Pass [address] [place] [address] 07/08/2025 3:40 PM EST Office Visit [facility] [address] [place] [address] Justyn Biswas DO 22 [place] [address] 09/20/2025 4:00 PM EST Office Visit [facility] [address] [place] [address] Gary Camargo, PREVENTIVE MEDICINE SPECIALIST [address] [place] [address], [address] [place] [address] [email or web address] 09/22/2025 2:20 PM EST Office Visit [facility] [address], [address] [place] [address] Peyman Sandoval MD [address] [facility], [address] [place] [address] 12/14/2025 7:30 AM EDT Appointment [address] [place] [address] Gary Camargo, PREVENTIVE MEDICINE SPECIALIST [address] [place] [address], [address] [place] [address] [email or web address] documented as of this encounter Results * US ABDOMEN LIMITED RIGHT UPPER [...] clinician's provided indication for this examination in [facility]: Outside Radiology Order; liver cyst TECHNIQUE: US [...] clinician's provided indication for this examination in [facility]:Outside Radiology Order; liver cyst TECHNIQUE: US Abdominal [...] back to 09/30/2024. us Leigh Ann Hager POWER TRANSFORMER REPAIRER IMG US ABDOMEN Final Result documented in this encounter Visit Diagnoses Diagnosis Liver cyst- Primary Other specified disorders of liver Fatty liver Other chronic nonalcoholic liver disease Liver cyst Other specified disorders of liver Fatty liver Other chronic nonalcoholic liver disease documented in this encounter Additional Health Concerns Assessment Noted Time PHQ-2 Depression Total Score: 0 09/11/19 25 7:49 PM EST documented as of this encounter Care Teams Customer Service Dispatcher Relationship Specialty Start Date End Date Gary Camargo CNP [address] [place] [address], [address] [place] [address] [email or web address] PCP - General 07/25/17 Guru Richardson MD [address] [place] [address], [address] [place] [address] Dermatology 04/29/19 Guru Darden MD [address] [place] [address] Ophthalmology 11/28/22 Peyman Sandoval MD [address] [place] [address], [address] [place] [address] Cardiology 11/28/22 Manav Mccray MD [address] [place] [address], [address] [place] [address] Insurance Assigned Provider 11/30/2308/19 Malik Alvarez MD [address] [facility], [address] [place] [address] Insurance Assigned Provider 03/06/25 [facility] 09/18/24 documented as of this encounter Additional Source Comments The information contained in this document represents components of the legal health record. It is not the complete legal health record.[facility]
--- OUTSIDE RECORDS SUMMARY | 2025-05-21 07:51 | XMS_ITS | Encounter Summary ---
Author Organization [facility] Address [address] [place] [address] Phone Care Team Providers Care Sandwich Hand Name Role Phone Gary Camargo CNP Unavailable [phone] Gary Camargo CNP Primary Care Provider [phone] Manav Mccray MD Unavailable [phone] Guru Richardson MD Unavailable [phone] Perla Estrada OD Unavailable [phone] Guru Darden MD Unavailable Manav Mccray MD Unavailable [phone] Peyman Sandoval MD Unavailable Manav Mccray MD Unavailable [phone] Malik Alvarez MD Unavailable [phone] Encounter Details Date Type Department Care Team (Late st Contact Info) Description 02/08/2021 Ancillary Orders Virtual Department 30 [place] [address] Gary Camargo CNP 22 [facility], [address] [place] [address] [email or web address] Breast screening Social History Tobacco [...] st Contact Info) Description 04/23/2025 Procedure Pass [address] [place] [address] 07/08/2025 3:40 PM EST Office Visit [facility] [address] [place] [address] Justyn Biswas DO 22 [place] [address] 09/20/2025 4:00 PM EST Office Visit [facility] [address] [place] [address] Gary Camargo, BOTTLE HOUSE PUMPER [address] [place] [address], [address] [place] [address] [email or web address] 09/22/2025 2:20 PM EST Office Visit [facility] [address], [address] [place] [address] Peyman Sandoval MD [address] [place] [address], [address] [place] [address] 12/14/2025 7:30 AM EDT Appointment [address] [place] [address] Gary Camargo, BOTTLE HOUSE PUMPER [address] [place] [address], [address] [place] [address] [email or web address] documented as of this encounter Results * BI MAMMOGRAM SCREENING WITH TOMOSYNTHESIS WITH CAD (BILATERAL) (03/02/2021 4:27 PM EDT) Anatomical Region Laterality Modality Breast Left, Breast Right, Breast Bilateral Bila teral Mammography 03/02/2021 4:36 PM EDT Impressions 03/02/2021 4:44 PM EDT No mammographic signs of malignancy. Annual screening is recommended. BI-RADS CATEGORY: 1 - Negative. DENSITY: The breast tissue is heterogeneously dense, which could obscure a lesion on mammography. Narrative 03/02/2021 4:44 PM EDT Bilateral mammography is performed in conjunction with computed aided detection. 3-D tomography along with 2-D C view imaging was also performed. Comparison made to previous dated as far back as 12/27/2010 and as recent as 03/01/2020. No suspicious masses, areas of architectural distortion or suspicious microcalcifications. Procedure Note Shabbir Linder MD - 03/02/2021 Bilateral mammography is performed in conjunction with computed aideddetection. 3-D tomography along with 2-D C view imaging was alsoperformed. Comparison made to previous dated as far back as 12/27/2010 andas recent as 03/01/2020. No suspicious masses, areas of architectural distortion or suspiciousmicrocalcifications. IMPRESSION: No mammographic signs of malignancy. Annual screening is recommended. BI-RADS CATEGORY: 1 - Negative. DENSITY: The breast tissue is heterogeneously dense, which could obscurea lesion on mammography. aGry Camargo CNP IMG MG EXAMS Final Res [...] documented as of this encounter Care Teams Sandwich Hand Relationship Specialty Start Date End Date Gary Camargo CNP [address] [place] [address], [address] [place] [address] [email or web address] PCP - General 07/25/17 Gary Camargo CNP [address] [place] [address], [address] [place] [address] Historical LMR Provider 06/16/1709/17 Manav Mccray MD [address] [place] [address], [address] [place] [address] [email or web address] Insurance Assigned Provider 01/25/19 10/29/21 Guru Richardson MD [address] [place] [address], [address] [place] [address] Dermatology 04/29/19 Perla Estrada OD [address] [place] [address] Optometry 04/29/19 09/12/23 Guru Darden MD [address] [place] [address] Ophthalmology 11/28/22 Manav Mccray MD [address] [place] [address], [address] [place] [address] [email or web address] Family Medicine 11/28/22 09/17/24 Peyman Sandoval MD [address] [place] [address], [address] [place] [address] [email or web address] Cardiology 11/28/22 Manav Mccray MD [address] [place] [address], [address] [place] [address] [email or web address] Insurance Assigned Provider 11/30/23 03/06/25 Malik Alvarez MD [address] [place] [address], [address] [place] [address] [email or web address] Insurance Assigned Provider 03/06/[address] [facility] 09/18/24 documented as of this encounter Additional Source Comments The information contained in this document represents components of the legal health record. It is not the complete legal health record.[facility]
--- OUTSIDE RECORDS SUMMARY | 2025-05-21 07:51 | XMS_ITS | Encounter Summary ---
Author Organization [facility] Address [address] [place] [address] Phone Care Team Providers Care Government Affairs Manager Name Role Phone Manav Mccray MD Unavailable [phone] Diana Rasmussen MD Unavailable [phone] Luz Marina Martinez ETHICS OFFICER Unavailable Sadia Santiago MD Unavailable [phone] Ashlee Galvez ETHICS OFFICER Unavailable Brina Bajwa ETHICS OFFICER Unavailable Mango Renteria MD Unavailable [phone] Greyson Neumann MD Unavailable [phone] Denisse Ramires ETHICS OFFICER Unavailable [phone] Clay Golden LEISURE STUDIES PROFESSOR Unavailable [phone] Malik Castaneda MD Unavailable SantGary mitchell LEISURE STUDIES PROFESSOR Unavailable Emilio Camargoice LEISURE STUDIES PROFESSOR Primary Care Provider [phone] Manav Mccray MD Unavailable [phone] Jacob Richardson MD Unavailable [phone] Perla Estrada OD Unavailable [phone] Jacob Darden MD Unavailable Manav Mccray MD Unavailable [phone] Peyman Sandoval MD Unavailable [phone] Manav Mccray MD Unavailable [phone] Malik Alvarez MD Unavailable [phone] Encounter Details Date Type Department Care Team (Late st Contact Info) Description 12/16/2018 Ancillary Orders Virtual Department 30 [place] [address] Gary Camargo, LEISURE STUDIES PROFESSOR [address] [place] [address], [address] [place] [address] [email or web address] Breast screening Social History Tobacco [...] st Contact Info) Description 04/23/2025 Procedure Pass [facility] - [address] [place] [address] 07/08/2025 3:40 PM EST Office Visit [facility] [address] [place] [address] Justyn Biswas DO [address] [place] [address] 09/20/2025 4:00 PM EST Office Visit [facility] [address] [place] [address] [place] [address] Gary Camargo, [place] [address] [place] [address], [address] [place] [address] [email or web address] 09/22/2025 2:20 PM EST Office Visit [facility] [address] [place] [address] Dr [address] Floor, [address] [place] [address] Peyman Sandoval MD [address] [facility], [address] [place] [address] 12/14/2025 7:30 AM EDT Appointment [address] [place] [address] Gary Camargo, SOL [address] [facility], [address] [place] [address] [email or web address] documented as of this encounter Results * BI MAMMOGRAM SCREENING WITH TOMOSYNTHESIS WITH CAD (BILATERAL) (02/09/2019 3:14 PM EDT) Anatomical Region Laterality Modality Breast Left, Breast Right, Breast Bilateral Bila teral Mammography 02/09/2019 3:18 PM EDT Impressions 02/09/2019 3:20 PM EDT No mammographic evidence of malignancy. BI-RADS CATEGORY: 2 - Benign finding. DENSITY: The breast tissue is heterogeneously dense, an appearance which lowers the sensitivity of mammography. POS - CDHMAMA Narrative 02/09/2019 3:20 PM EDT Standard digital full-field 2-D C view and two-plane tomographic imaging was performed and compared with multiple prior studies, most recently 02/06/2018, with utilization of computer-aided detection. The breast parenchyma is heterogeneously dense, somewhat limiting mammographic sensitivity. The stromal markings are essentially unchanged in overall appearance and distribution. No dominant spiculated mass, suspicious clustered microcalcifications, or focal zone of pathologic skin thickening or retraction are noted to have arisen in the interim. Scattered punctate grossly benign-appearing microcalcifications are again demonstrated bilaterally. Procedure Note Jacob Carter MD - 02/09/2019 Standard digital full-field 2-D C view and two-plane tomographic imagingwas performed and compared with multiple prior studies, most ymggllse42/14/2018, with utilization of computer-aided detection. The breast parenchyma is heterogeneously dense, somewhat limitingmammographic sensitivity. The stromal markings are essentially unchangedin overall appearance and distribution. No dominant spiculated mass,suspicious clustered microcalcifications, or focal zone of pathologic skinthickening or retraction are noted to have arisen in the interim.Scattered punctate grossly benign-appearing microcalcifications are againdemonstrated bilaterally. IMPRESSION: No mammographic evidence of malignancy. BI-RADS CATEGORY: 2 - Benign finding. DENSITY: The breast tissue is heterogeneously dense, an appearance whichlowers the sensitivity of mammography. POS - CDHMAMA Gary Camargo CNP IMG MG EXAMS Final [...] documented as of this encounter Care Teams Government Affairs Manager Relationship Specialty Start Date End Date Gary Camargo CNP [address] [place] [address], [address] [place] [address] PCP - General 07/25/17 Manav Mccray MD [address] [place] [address], [address] [place] [address] Historical LMR Provider 06/16/17 9 Diana Rasmussen MD [address] [place] [address], [address] [place] [address] Historical LMR Provider 06/16/17 Luz Marina Martinez NP [address] [place] [address] Historical LMR Provider 06/16/17 9 Sadia Santiago MD [address] [address] Historical LMR Provider 06/16/17 12/30/18 Ashlee Galvez, KIRILL [address] [place] [address] Historical LMR Provider 06/16/17 9 Brina Bajwa NP [address] [place] [address] Historical LMR Provider 06/16/17 9 Mango Renteria MD [address] [address] Historical LMR Provider 06/16/17 12/30/18 Greyson Neumann MD [address] [place] [address] 7 [place] [address] Historical LMR Provider 06/16/17 9 Denisse Ramires NP [address] [place] [address] 6 [place] [address] Historical LMR Provider 06/16/17 12/30/18 Clay Golden, LEISURE STUDIES PROFESSOR [address] [address] Historical LMR Provider 06/16/17 12/30/18 Malik Castaneda MD [address] [place] [address] [address] [place] [phone] [email or web address] Historical LMR Provider 06/16/17 04/28/19 Gary Camargo CNP [address] [place] [address], [address] [place] [address] Historical LMR Provider 06/16/1709/17 Manav Mccray MD [address] [place] [address], [address] [place] [address] Insurance Assigned Provider 01/25/19 10/29/21 Jacob Richardson MD [address] [place] [address], [address] [place] [address] Dermatology 04/29/19 Perla Estrada OD [address] [place] [address] Optometry 04/29/19 09/12/23 Jacob Darden MD [address] [place] [address] Ophthalmology 11/28/22 Manav Mccray MD [address] [place] [address], [address] [place] [address] [email or web address] 11/28/22 09/17/24 Peyman Sandoval MD [address] [place] [address], [address] [place] [address] [email or web address] Cardiology 11/28/22 Manav Mccray MD [address] [place] [address], [address] [place] [address] [email or web address] Insurance Assigned Provider 11/30/23 03/06/25 Malik Alvarez MD [address] [place] [address], [address] [place] [address] [email or web address] Insurance Assigned Provider 03/06/25 [facility] 09/18/24 documented as of this encounter Additional Source Comments The information contained in this document represents components of the legal health record. It is not the complete legal health record.[facility]
--- OUTSIDE RECORDS SUMMARY | 2025-05-21 07:51 | XMS_ITS | Encounter Summary ---
Author Organization [facility] Address [address] [place] [address] Phone Care Team Providers Care Paper Finisher Name Role Phone Gary Camargo CNP Unavailable [phone] Gary Camargo CNP Primary Care Provider [phone] Guru Richardson MD Unavailable Guru Darden MD Unavailable [phone] Manav Mccray MD Unavailable [phone] Peyman Sandoval MD Unavailable [phone] Manav Mccray MD Unavailable [phone] Malik Alvarez MD Unavailable [phone] Encounter Details Date Type Department Care Team (Late st Contact Info) Description 03/17/2024 Procedure Pass [facility] - [address] [place] [address] Social History Tobacco Use Types Packs/Day Years [...] high school, GED, job training, learning the [place] language, technical skills, or developing parenting skills)? [...] st Contact Info) Description 04/23/[address] [place] [facility] - [address] [place] [address] 07/08/2025 3:40 PM EST Office Visit [facility] [address] [place] [address] Justyn Biswas DO [address] [place] [address] 09/20/2025 4:00 PM EST Office Visit [facility] Medicine [address] [place] [address] [place] [address] Gary Camargo CNP [address] [place] [address], [address] [place] [address] [email or web address] 09/22/2025 2:20 PM EST Office Visit [facility] [address] [place] [address] [address]rd Floor, [address] [place] [address] Peyman Sandoval MD [address] [place] [address], [address] [place] [address] 12/14/2025 7:30 AM EDT Appointment [address] [place] [address] Gary Camargo CNP [address] [place] [address], [address] [place] [address] [email or web address] documented as of this encounter Visit Diagnoses Not on filedocumented in this encounter Additional Health Concerns Assessment Noted Time PHQ-2 Depression Total Score: 0 09/13/19 24 2:21 PM EST documented as of this encounter Care Teams Paper Finisher Relationship Specialty Start Date End Date Gary Camargo CNP [address] [place] [address], [address] [place] [address] PCP - General 07/25/17 Gary Camargo CNP [address] [place] [address], [address] [place] [address] Historical LMR Provider 06/16/1709/17 Guru Richardson MD [address] [place] [address], [address] [place] [address] Dermatology 04/29/19 Guru Darden MD [address] [place] [address] [place] [address] Ophthalmology 11/28/22 Manav Mccray MD [address] [place] [address], [address] [place] [address] Family Medicine 11/28/22 09/17/24 Peyman Sandoval MD [address] [place] [address], [address] [place] [address] Cardiology 11/28/22 Manav Mccray MD [address] [place] [address], [address] [place] [address] Insurance Assigned Provider 11/30/2308/19 Malik Alvarez MD [address] [place] [address], [address] [place] [address] Insurance Assigned Provider 03/06/25 [facility] 09/18/24 documented as of this encounter Additional Source Comments The information contained in this document represents components of the legal health record. It is not the complete legal health record.[facility]
--- OUTSIDE RECORDS SUMMARY | 2025-05-21 07:51 | XMS_ITS | Encounter Summary ---
Author Organization [facility] Address [address] [place] [address] Phone Care Team Providers Care Store Protection Specialist Name Role Phone Gary Camargo CNP Unavailable [phone] Gary Camargo CNP Primary Care Provider [phone] Manav Mccray MD Unavailable [phone] Guru Richardson MD Unavailable Perla Estrada OD Unavailable [phone] Guru Darden MD Unavailable Manav Mccray MD Unavailable [phone] Peyman Sandoval MD Unavailable Manav Mccray MD Unavailable [phone] Malik Alvarez MD Unavailable [phone] Encounter Details Date Type Department Care Team (Late st Contact Info) Description 02/29/2020 Ancillary Orders [facility] Medicine [address] [place] [address] [place] [address] Gary Camargo CNP [address] [facility], [address] [place] [address] [email or web address] Breast screening Social History Tobacco Use [...] st Contact Info) Description 04/23/2025 Procedure Pass [address] [place] [address] 07/08/2025 3:40 PM EST Office Visit [facility] [address] [place] [address] Justyn Biswas DO 22 [place] [address] 09/20/2025 4:00 PM EST Office Visit [facility] Medicine [address] [place] [address] [place] [address] Gary Camargo, MULTIPLE NEEDLE STITCHER [address] [place] [address], [address] [place] [address] [email or web address] 09/22/2025 2:20 PM EST Office Visit [facility] [address] [place] [address] Dr [address] Floor, [address] [place] [address] Peyman Sandoval MD [address] [place] [address], [address] [place] [address] 12/14/2025 7:30 AM EDT Appointment [address] [place] [address] Gary Camargo, MULTIPLE NEEDLE STITCHER [address] [place] [address], [address] [place] [address] [email or web address] documented as of this encounter Results * BI MAMMOGRAM SCREENING WITH TOMOSYNTHESIS WITH CAD (BILATERAL) (03/01/2020 3:14 PM EDT) Anatomical Region Laterality Modality Breast Left, Breast Right, Breast Bilateral Bila teral Mammography 03/01/2020 4:44 PM EDT Impressions 03/01/2020 4:48 PM EDT No mammographic signs of malignancy. Annual screening is recommended. BI-RADS CATEGORY: 2 - Benign finding. DENSITY: The breast tissue is heterogeneously dense, an appearance which lowers the sensitivity of mammography. POS - CDHMAMA Narrative 03/01/2020 4:48 PM EDT Bilateral mammography is performed in conjunction with computed aided detection. 3-D tomography along with 2-D C view imaging was also performed. Comparison made to previous dated as far back as 01/13/2014 and as recent as 02/09/2019. No suspicious masses, areas of architectural distortion or suspicious microcalcifications. Small cluster of microcalcifications in the mid-anterior upper right breast is stable. Procedure Note Shabbir Thurston MD - 03/01/2020 Bilateral mammography is performed in conjunction with computed aideddetection. 3-D tomography along with 2-D C view imaging was alsoperformed. Comparison made to previous dated as far back as 01/13/2014 andas recent as 02/09/2019. No suspicious masses, areas of architectural distortion or suspiciousmicrocalcifications. Small cluster of microcalcifications in themid-anterior upper right breast is stable. IMPRESSION: No mammographic signs of malignancy. Annual screening is recommended. BI-RADS CATEGORY: 2 - Benign finding. DENSITY: The breast tissue is heterogeneously dense, an appearance whichlowers the sensitivity of mammography. POS - CDHMAMA us Gary Camargo MULTIPLE NEEDLE STITCHER IMG MG EXAMS Final Res ult documented [...] documented as of this encounter Care Teams Store Protection Specialist Relationship Specialty Start Date End Date LakhwinderalainaEmilioebonySOL [address] [place] [address], [address] [place] [address] [email or web address] PCP - General 07/25/17 Gary Camargo CNP [address] [place] [address], [address] [place] [address] [email or web address] Historical LMR Provider 06/16/1709/17 Manav Mccray MD [address] [place] [address], [address] [address] [email or web address] Insurance Assigned Provider 01/25/19 10/29/21 Guru Richardson MD [address] [place] [address], [address] [place] [address] Dermatology 04/29/19 Perla Estrada OD [address] [place] [address] Optometry 04/29/19 09/12/23 Guru Darden MD [address] [place] [address] Ophthalmology 11/28/22 Manav Mccray MD [address] [place] [address], [address] [address] [email or web address] Medicine 11/28/22 09/17/24 Peyman Sandoval MD [address] [place] [address], [address] [place] [address] [email or web address] Cardiology 11/28/22 Manav Mccray MD [address] [place] [address], [address] [place] [address] Insurance Assigned Provider 11/30/23 03/06/25 Malik Alvarez MD [address] [place] [address], [address] [place] [address] [email or web address] Insurance Assigned Provider 03/06/25 [facility] 09/18/24 documented as of this encounter Additional Source Comments The information contained in this document represents components of the legal health record. It is not the complete legal health record.[facility]
== END 2025-05-21 07:49 | disposition home or self-care (01) ==
LOC: HO.MAMMO 07:48
PROVIDERS: PCP Nurse Practitioner Adult Health; Visit Provider Nurse Practitioner Adult Health
DX: Z12.31 Encounter for screening mammogram for malignant neoplasm of breast (principal)
CPT/HCPCS: 77063; 77067

== ENCOUNTER → 2025-05-21 08:00 | Outpatient (BNV) | payer BC, SELFPAY | PROVIDERS: PCP Nurse Practitioner Adult Health; Visit Provider Internal Medicine | DX: Z12.31 Encounter for screening mammogram for malignant neoplasm of breast (principal) | CPT/HCPCS: 77063; 77067 ==